=== PATIENT | male | born 1995 | race African-American/Black ===

== ENCOUNTER 2020-03-08 22:14 | Emergency (ER) | payer MEDICAID ==
[~2020-03-08] VITALS: Ht 172.7 cm; Wt 72.6 kg
--- NOTE | 2020-03-08 22:31 | NUR ---
C/O SCALP LAC s/p doing back flip into swimming pool. - ko. pt aox4 rr even and unlabored. no sob noted. no nvd at this time. pt waiting for md rojas.
--- NOTE | 2020-03-08 22:36 | NUR ---
PT REFUSED CT.
[2020-03-08] MEDS ORDERED: LIDOCAINE 1%-EPI 1:100,000 20 ML VIAL ONE (22:54)
--- NOTE | 2020-03-08 23:00 | NUR ---
Dr. Thomas at bedside for lac repair.
--- NOTE | 2020-03-08 23:05 | NUR ---
pt cleared for discharge per dr. van. pt received discharge instructions. pt verbalized understanding. pt ambulatory with steady gait.
[2020-03-08 23:06] VITALS: BP 122/68
== END 2020-03-08 23:07 | disposition home or self-care (01) ==
LOC: ER 22:20
DX: S01.01XA Laceration without foreign body of scalp, initial encounter (principal); W22.8XXA Striking against or struck by other objects, initial encounter; Y93.89 Activity, other specified; Y92.89 Other specified places as the place of occurrence of the external cause; Y99.8 Other external cause status
CPT/HCPCS: 12001; 99282; A6403; J3490